=== PATIENT | male | born 1950 | race African-American/Black ===

== ENCOUNTER 2017-05-30 23:46 | Inpatient (IN) | payer OTHER ==
[~2017-05-30] VITALS: Ht 157.5 cm; Wt 82.0 kg
[2017-05-31 00:40] LABS: BASOPHIL (%) 0.3 % (0-1); EOSINOPHIL (%) 0.7 % (0-5); EOSINOPHIL COUNT 0.1 K/uL (0-0.3); HEMATOCRIT 30.7 % (38.0-50.0); HEMOGLOBIN 10.1 G/DL (12.5-16.6); IMMATURE GRANULOCYTE (%) 0.3 % (0.0-0.7); LYMPHOCYTE COUNT 1.7 K/uL (1.0-2.8); MCH 26.2 PG (29.0-34.0); MCHC 32.9 G/DL (30.0-36.0); MCV 79.7 FL (86-99); MONOCYTE (%) 9.3 % (3-12); MONOCYTE COUNT 0.9 K/uL (0-0.8); NEUTROPHIL (%) 72.4 % (45-76); NEUTROPHIL COUNT 7.3 K/uL (1.8-6.4); PLATELET COUNT 236 K/uL (156-360); RBC DIS.WIDTH-CV 14.3 % (11.8-14.6); RBC DIS.WIDTH-SD 41.3 % (39-53); RED BLOOD COUNT 3.85 M/uL (4.00-5.50)
[2017-05-31 00:52] LABS: CHLORIDE 101 mEq/L (99-109); POTASSIUM 4.5 mEq/L (3.7-5.4); SODIUM 135 mEq/L (136-147)
[2017-05-31 00:53] LABS: GLUCOSE 105 mg/dL (70-99)
[2017-05-31 00:57] LABS: CREATININE 1.1 mg/dL (0.6-1.3)
[2017-05-31 00:58] LABS: UREA NITROGEN (BUN) 20 mg/dL (9-23)
[2017-05-31 00:59] LABS: GFR ESTIMATE (CALCULATED) > 59 mL/min/ (58.99-99999)
[2017-05-31] MEDS ORDERED: CARBAMAZEPINE200 MG PO ×2 (04:14→04:15)
[2017-05-31] MEDS ORDERED: BENADRYL A12.5 MG/5 PO (04:16)
[2017-05-31] MEDS ORDERED: TYLENOL REGULA325 MG PO (04:18)
[2017-05-31] MEDS ORDERED: HALDOL10 MG/5 ML PO (04:20)
[2017-05-31] MEDS ORDERED: GEMFIBROZIL600 MG PO (04:21)
[2017-05-31] MEDS ORDERED: MULTIVITAMIN1 EAC2 PO (04:22)
[2017-05-31] MEDS ORDERED: GLUCOPHAGE500 MG PO (04:23)
[2017-05-31] MEDS ORDERED: ZOCOR40 MG PO (04:23)
[2017-05-31] MEDS ORDERED: BAYER CHEWABLE81 MG PO (04:25)
[2017-05-31] MEDS ORDERED: PRINIVIL10 MG PO (04:26)
[2017-05-31] MEDS ORDERED: KEFLEX500 MG PO (06:30)
[2017-05-31] MEDS ORDERED: NAPROSYN500 MG PO (06:30)
[2017-05-31 06:55] VITALS: BP 129/62
[2017-05-31 08:02] VITALS: BP 134/83
== END 2017-05-31 17:28 | DRG 605 ==
LOC: EME 23:46 → EDOF 05-31 03:38 → CANRESERV 05-31 03:40 → ENRESERV 05-31 03:40 → CANRESERV 05-31 05:25 → ENRESERV 05-31 05:25 → EDOF 05-31 17:28
PROVIDERS: Emergency Medicine; Orthopaedic Surgery
PROC: 0LJ Tendons, Inspection (ICD-10-PCS; principal; 2017-05-31)
PROC: 0HQ1XZZ Repair Face Skin, External Approach (ICD-10-PCS; 2017-05-31)
DX: S60.445A External constriction of left ring finger, initial encounter (principal); F25.0 Schizoaffective disorder, bipolar type; M79.89 Other specified soft tissue disorders; S01.81XA Laceration without foreign body of other part of head, initial encounter; F98.8 Other specified behavioral and emotional disorders with onset usually occurring in childhood and adolescence; X58.XXXA Exposure to other specified factors, initial encounter; I10 Essential (primary) hypertension; E11.9 Type 2 diabetes mellitus without complications; Z79.84 Long term (current) use of oral hypoglycemic drugs
CPT/HCPCS: 70450; 73140; 80048; 82948; 85025; 87070; 87075; 87116; 87205; 87206; 93005; 99281; 99285; J0690; J2250; J3010; J7030